=== PATIENT | female | born 1965 | race Caucasian/White ===

== ENCOUNTER → 2017-05-01 | Outpatient (CLI) | payer MEDICAID | LOC: CIMAGING 13:12 | PROVIDERS: ATTEND Nurse Practitioner Family | DX: N13.30 Unspecified hydronephrosis (principal); N20.1 Calculus of ureter | CPT/HCPCS: 74176-PO ==

== ENCOUNTER → 2017-05-05 | Outpatient (CLI) | payer MEDICAID | LOC: BRMIMAGING 08:30 | PROVIDERS: ATTEND Nurse Practitioner Family | DX: K76.89 Other specified diseases of liver (principal); N28.1 Cyst of kidney, acquired; D73.4 Cyst of spleen; N13.30 Unspecified hydronephrosis; K76.0 Fatty (change of) liver, not elsewhere classified | CPT/HCPCS: 76700-PO ==

== ENCOUNTER → 2017-06-09 | Outpatient (CLI) | payer MEDICAID | LOC: FIMAGING 10:57 | PROVIDERS: ATTEND Specialist | DX: R10.9 Unspecified abdominal pain (principal); R31.9 Hematuria, unspecified ==